=== PATIENT | female | born 1975 | race Caucasian/White ===

== ENCOUNTER 2018-04-02 13:45 | Emergency (ER) | payer MEDICAID ==
[~2018-04-02] VITALS: Ht 162.6 cm; Wt 63.5 kg
[2018-04-02] MEDS ORDERED: MOBIC15 MG PO (14:54)
[2018-04-02] MEDS ORDERED: AMITRIPTYLINE100 MG PO (14:55)
[2018-04-02] MEDS ORDERED: BUSPIRONE HCL30 MG PO (14:55)
[2018-04-02] MEDS ORDERED: IRON18 MG PO (14:55)
[2018-04-02] MEDS ORDERED: CITALOPRAM HBR40 MG PO (14:56)
[2018-04-02] MEDS ORDERED: HYDROXYZINE HCL50 MG PO (14:56)
== END 2018-04-02 20:50 | disposition home or self-care (01) ==
LOC: ED 13:45
DX: F15.129 Other stimulant abuse with intoxication, unspecified (principal); F17.200 Nicotine dependence, unspecified, uncomplicated; Z79.899 Other long term (current) drug therapy
CPT/HCPCS: 80053; 80176; 81001; 84703; 85025; 96372; 99284; G0480; J2060